=== PATIENT | male | born 1970 | race Caucasian/White ===

== ENCOUNTER 2022-12-07 16:16 | Inpatient (IN) ==
--- NOTE | 2022-12-07 16:30 | Emergency Department Note ---
History of Present Illness General Chief complaint: Arm Pain Stated complaint: PAIN IN ARM Time Seen by Provider: 12/07/22 16:28 History of Present Illness This is a 52-year-old male that presents to the emergency department via private vehicle with complaints of "pain in left arm". Patient notes this past he did a workout. He notes that he did push presses and push-ups. He did approximately 75 push-ups and 75 push presses. This is a bit more than normal. He notes since that time some swelling to the left arm and soreness with similar symptoms developing now on the right. No chest pain or shortness of breath. No fevers or chills. No nausea or vomiting. He notes a history of rhabdomyolysis. Home Medications Medication Instructions Recorded Confirmed Type acetaminophen 500 mg tablet 1,000 mg PO Q6H PRN Pain 12/07/22 12/07/22 History (Tylenol Extra Strength) atorvastatin 10 mg tablet 10 mg PO DAILY 12/07/22 12/07/22 History ibuprofen 200 mg tablet 400 mg PO Q6H PRN Pain 12/07/22 12/07/22 History omeprazole 20 mg tablet,delayed 20 mg PO DAILY 12/07/22 12/07/22 History release Allergies Allergy/AdvReac Type Severity Reaction Status Date / Time No Known Allergies Allergy Unverified 12/07/22 18:47 Past Med/Surg History Medical History HLD (hyperlipidemia) Rhabdomyolysis Surgical History S/P rotator cuff repair Status post total right knee replacement Family History (Updated 12/07/22 @ 19:30 by Sara Munguia PA-C) Father Prostate cancer Social History Smoking Status: Never smoker Hx Alcohol Use: Yes Alcohol type: beer, wine and hard liquor Alcohol Intake Frequency: 2-3 x/Week Hx Substance Use: No Preferred Language: Latvian Communication Ability: Effective Oil Agent Required: No Beliefs That Will Affect Care: None marital status: Current Living Situation: Spouse and Family Current Living Situation Comment: Patient lives at home with and son How many Children do You have: 2 Other Information That Helps Us Care for You: No Feels Safe at Home: Yes Safety Concerns: Feels Safe At This Time Assistive Devices: None Review of Systems A total of 10 systems reviewed and were otherwise negative Physical Exam Vital Signs Vital Signs - 24 hr 12/07/22 16:24 Temperature 36.5 C Temperature Source Skin Pulse Rate 84 Respiratory Rate 20 Respiratory Effort / Characteristics Non-Labored Spontaneous Respiratory Depth Normal Respiratory Pattern Regular Blood Pressure 171/101 H Blood Pressure Mean 124 Pulse Oximetry 98 Oxygen Delivery Method Room Air Sepsis Recent Fever Within 48 Hours No Sepsis New/Unexplained Change in Mental Status N/A Sepsis Action Taken by Nursing No Action Required VITAL SIGNS - Vital signs and nursing notes were reviewed. Stable and afebrile. GENERAL -52-year-old male appearing his stated age who is in no acute distress. Communicates well with provider and answers questions appropriately. SKIN - Without rashes. No meningeal or petechial rash. There is edema present to the left upper extremity. HEAD - NC/AT. EYES - Sclera anicteric. MOUTH/OROPHARYNX - Without perioral cyanosis. LUNGS - Chest wall symmetric without accessory muscle use, intercostals retractions, or central cyanosis. Normal vesicular breath sounds CTA B/L. No wheezes, rales, or rhonchi appreciated. CARDIAC - RRR with S1/S2. No murmur, rubs, or gallops appreciated. EXTREMITIES - No clubbing or peripheral cyanosis. Skin as above. Left radial pulse intact. Left upper extremity is with diffuse edema but without evidence of compartment syndrome. Arm is overall soft and nonrigid. Preserved active range of motion of the upper extremities noted. +5/5 strength noted in UE/LE bilaterally. NEUROLOGIC - Cranial nerves II through XII grossly intact. PSYCH - A&O, and cooperates fully with examiner. Pt is very pleasant and interacts well with examiner. Course Administered Medications Sodium Chloride (Nss 1000ml) 1,000 mls @ 150 mls/hr IV .Q6H40M JAIR Stop: 12/08/22 09:53 Last Admin: 12/07/22 20:49 Dose: 150 mls/hr Documented By: PASCUAL Oxycodone HCl (Oxycodone Hcl Ir 5 Mg Tab (Immediate Release)) 5 - 10 mg PO QID PRN PRN Reason: Pain Stop: 12/21/22 20:25 Last Admin: 12/07/22 20:55 Dose: 10 mg Documented By: PASCUAL Discontinued Medications Sodium Chloride (Nss 1000ml) 1,000 mls @ 999 mls/hr IV .Q1H1M JAIR Stop: 12/07/22 18:45 Last Infusion: 12/07/22 20:38 Dose: 0 mls/hr Documented By: Admin: 12/07/22 18:25 Dose: 999 mls/hr Documented By: EMI Medical Decision Making Laboratory Data 12/07/22 16:42 12/07/22 16:42 Lab Results 12/07/22 12/07/22 12/07/22 Range/Units 16:42 16:42 16:44 WBC 11.59 H (4.8-10.8) K/ul RBC 4.93 (4.70-6.10) M/uL Hgb 16.3 (14.0-18.0) g/dl Hct 44.7 (42.0-52.0) % MCV 90.7 (80.0-100.0) fL MCH 33.1 (25.0-34.0) pg MCHC 36.5 H (32.0-36.0) g/dL RDW Std Deviation 39.8 (36.4-46.3) fL RDW Coeff of Mj 11.9 (11.5-14.5) % Plt Count 278 (130-400) K/uL MPV 10.3 (9.4-12.4) fL Immature Gran % (Auto) 0.4 % Neut % (Auto) 69.8 % Lymph % (Auto) 20.7 % [place] % (Auto) 8.2 % Eos % (Auto) 0.5 % Baso % (Auto) 0.4 % Neut # (Auto) 8.08 H (1.40-6.50) K/uL Lymph # (Auto) 2.40 (1.2-3.4) K/uL [place] # (Auto) 0.95 H (0.11-0.59) K/uL Eos # (Auto) 0.06 (0-0.50) K/uL Baso # (Auto) 0.05 (0-0.2) K/uL Immature Gran # (Auto) 0.05 (0.01-0.20) K/uL Sodium 134 L (136-145) mmol/L Potassium 3.7 (3.5-5.1) mmol/L Chloride 101 (98-107) mmol/L Carbon Dioxide 25 (21-32) mmol/L Anion Gap 8 (3-11) BUN 17 (6-23) mg/dl Creatinine 1.04 (0.6-1.4) mg/dl Est Cr Clr Drug Dosing 76.3 ml/min Est GFR ( Amer) 95.9 ml/min Est GFR (Non-Af Amer) 82.7 ml/min BUN/Creatinine Ratio 16.3 (10-20) Glucose 138 H (70-99(Fasting)) mg/dl Calcium 8.8 (8.5-10.1) mg/dl Total Bilirubin 0.8 (0.2-1.0) mg/dl AST 756 H (13-39) U/L ALT 179 H (7-52) U/L Alkaline Phosphatase 66 (34-104) U/L Total Creatine Kinase 35002 H (30-223) U/L Total Protein 7.0 (6.0-8.3) gm/dl Albumin 4.4 (3.4-5.0) gm/dl Globulin 2.6 (2.5-4.0) gm/dl Albumin/Globulin Ratio 1.7 (0.9-2) Urine Color Yellow Urine Appearance Clear (Clear) Urine pH 5.5 (4.5-7.5) Ur Specific [place] 1.013 (1.000-1.030) Urine Protein 1+ H (Negative) Urine Glucose (UA) Negative (Negative) Urine Ketones Negative (Negative) Urine Blood 3+ H (Negative) Urine Nitrite Negative (Negative) Urine Bilirubin Negative (Negative) Urine Urobilinogen Negative (Negative) Ur Leukocyte Esterase Negative (Negative) Urine WBC (Auto) 1-5 (0-5) /hpf Urine RBC (Auto) 0-4 (0-4) /hpf U Hyaline Cast (Auto) 0 (0-5) /lpf U Epithel Cells (Auto) 0-5 (0-5) /lpf Urine Bacteria (Auto) Negative (Negative) SARS-CoV-2, RNA, NAAT (NEGATIVE) 12/07/22 Range/Units 18:23 WBC (4.8-10.8) K/ul RBC (4.70-6.10) M/uL Hgb (14.0-18.0) g/dl Hct (42.0-52.0) % MCV (80.0-100.0) fL MCH (25.0-34.0) pg MCHC (32.0-36.0) g/dL RDW Std Deviation (36.4-46.3) fL RDW Coeff of Mj (11.5-14.5) % Plt Count (130-400) K/uL MPV (9.4-12.4) fL Immature Gran % (Auto) % Neut % (Auto) % Lymph % (Auto) % [place] % (Auto) % Eos % (Auto) % Baso % (Auto) % Neut # (Auto) (1.40-6.50) K/uL Lymph # (Auto) (1.2-3.4) K/uL [place] # (Auto) (0.11-0.59) K/uL Eos # (Auto) (0-0.50) K/uL Baso # (Auto) (0-0.2) K/uL Immature Gran # (Auto) (0.01-0.20) K/uL Sodium (136-145) mmol/L Potassium (3.5-5.1) mmol/L Chloride (98-107) mmol/L Carbon Dioxide (21-32) mmol/L Anion Gap (3-11) BUN (6-23) mg/dl Creatinine (0.6-1.4) mg/dl Est Cr Clr Drug Dosing ml/min Est GFR ( Amer) ml/min Est GFR (Non-Af Amer) ml/min BUN/Creatinine Ratio (10-20) Glucose (70-99(Fasting)) mg/dl Calcium (8.5-10.1) mg/dl Total Bilirubin (0.2-1.0) mg/dl AST (13-39) U/L ALT (7-52) U/L Alkaline Phosphatase (34-104) U/L Total Creatine Kinase (30-223) U/L Total Protein (6.0-8.3) gm/dl Albumin (3.4-5.0) gm/dl Globulin (2.5-4.0) gm/dl Albumin/Globulin Ratio (0.9-2) Urine Color Urine Appearance (Clear) Urine pH (4.5-7.5) Ur Specific [place] (1.000-1.030) Urine Protein (Negative) Urine Glucose (UA) (Negative) Urine Ketones (Negative) Urine Blood (Negative) Urine Nitrite (Negative) Urine Bilirubin (Negative) Urine Urobilinogen (Negative) Ur Leukocyte Esterase (Negative) Urine WBC (Auto) (0-5) /hpf Urine RBC (Auto) (0-4) /hpf U Hyaline Cast (Auto) (0-5) /lpf U Epithel Cells (Auto) (0-5) /lpf Urine Bacteria (Auto) (Negative) SARS-CoV-2, RNA, NAAT NEGATIVE (NEGATIVE) Imaging Data Radiologist's Impression: Extremity Venous Study 12/07/22 16:38 LEFT UPPER EXTREMITY VENOUS DOPPLER ULTRASOUND CLINICAL HISTORY: Left arm pain COMPARISON STUDY: No previous studies for comparison. TECHNIQUE: Sonography of the deep venous system of the left upper extremity was performed. FINDINGS: The left internal jugular, subclavian, axillary, brachial, radial and ulnar veins were patent. No deep venous thrombus was identified within left upper extremity. IMPRESSION: No deep venous thrombus within the left upper extremity. ACT 112: Negative or not required by law. Electronically signed by: Lucien Ovalle M.D. 12/07/2022 5:44 PM [facility] Narrative Patient was seen and evaluated as above in room C12. Review was performed of nursing notes and vital signs. After obtaining a thorough history and physical examination the above work up was performed. Patient presents to us today for assessment of discomfort in the left arm following a workout. He clinically is well-appearing and nontoxic. Vital signs stable. He notes a history of rhabdomyolysis and this feels similar. Options of care were discussed with the patient. IV access was established. Labs were drawn. There is minimal leukocytosis 11.59. No anemia. Mild hyponatremia 134. Hyperglycemia 138[place] [address] consistent with rhabdomyolysis. Urine reveals 3+ blood and 1+ protein. COVID testing negative. DVT study of left upper extremity was negative. At this time I do believe that further evaluation and management in the inpatient setting is warranted. IV fluids ordered here in the ED. Case discussed with the hospitalist service. Please refer to further documentation regarding his stay. While in the department, I personally reevaluated the patient several times and each time the patient was found to be resting comfortably. The patient was educated upon management, educated upon todays findings/results, educated upon importance of follow up from today's visit, educated upon symptoms in which to return, had questions answered prior to discharge, verbalized understanding, and was discharged home in good condition. In the evaluation and treatment of this patient the following differential diagnoses were entertained: DVT, cellulitis, compartment syndrome, rhabdomyolysis, among others Impression & Plan Rhabdomyolysis, Elevated LFTs, Edema of left upper extremity Discharge Plan Visit Data Chief Complaint: Arm Pain Stated Complaint: PAIN IN ARM ED Provider: Sidney Best ED Midlevel Provider: Michael Monae Discharge Problem: Rhabdomyolysis, Elevated LFTs, Edema of left upper extremity Patient Disposition: Home - Self-Care Condition: Good Discharge Instructions Interventions: ED Discharge Assessment Last Done: 12/07/22 20:24
[2022-12-07 17:04] LABS: Basophils # (auto) 0.05 K/uL (0-0.2); Basophils % (auto) 0.4 %; Eosinophils # (auto) 0.06 K/uL (0-0.50); Eosinophils % (auto) 0.5 %; Hematocrit (blood only) 44.7 % (42.0-52.0); Hemoglobin 16.3 g/dl (14.0-18.0); Immature Granulocytes # (auto) 0.05 K/uL (0.01-0.20); Immature Granulocytes % (auto) 0.4 %; Lymphocytes % (auto) 20.7 %; Mean Corpuscular Hemoglobin 33.1 pg (25.0-34.0); Mean Corpuscular Hgb Conc 36.5 g/dL (32.0-36.0); Mean Corpuscular Volume 90.7 fL (80.0-100.0); Mean Platelet Volume 10.3 fL (9.4-12.4); Monocytes # (auto) 0.95 K/uL (0.11-0.59); Monocytes % (auto) 8.2 %; Neutrophils # (auto) 8.08 K/uL (1.40-6.50); Neutrophils % (auto) 69.8 %; Platelet Count 278 K/uL (130-400); RDW Coefficient of Variation 11.9 % (11.5-14.5); RDW Standard Deviation 39.8 fL (36.4-46.3); Red Blood Count 4.93 M/uL (4.70-6.10); White Blood Count 11.59 K/ul (4.8-10.8)
[2022-12-07 17:05] LABS: Appearance Urine Clear (Clear); Bacteria Urine Automated Negative (Negative); Bilirubin Urine Negative (Negative); Blood Urine 3+ (Negative); Cast Urine Automated 0 /lpf (0-5); Color Urine Yellow; Epithelial Cell Urine Auto 0-5 /lpf (0-5); Glucose Urine UA Negative (Negative); Ketones Urine Negative (Negative); Leukocyte Esterase Urine Negative (Negative); Nitrite Urine Negative (Negative); Protein Urine 1+ (Negative); RBC Urine Automated 0-4 /hpf (0-4); Specific Gravity Urine 1.013 (1.000-1.030); Urobilinogen Urine Negative (Negative); pH Urine 5.5 (4.5-7.5)
[2022-12-07 17:16] LABS: BUN Creatinine Ratio 16.3 (10-20); Calcium 8.8 mg/dl (8.5-10.1); Creatinine Clr Calc Pharmacy 76.3 ml/min; Est GFR (African American) 95.9 ml/min; Est GFR (Non-African American) 82.7 ml/min; Potassium 3.7 mmol/L (3.5-5.1)
[2022-12-07 17:26] LABS: Albumin Globulin Ratio 1.7 (0.9-2); Albumin Level 4.4 gm/dl (3.4-5.0); Bilirubin,Total 0.8 mg/dl (0.2-1.0); Globulin 2.6 gm/dl (2.5-4.0)
[2022-12-07] MEDS ORDERED: SODIUM CHLORIDE 0.9% 1000ML 1,000 ML IV SCH (17:45)
--- NOTE | 2022-12-07 17:45 | Ultrasound Report ---
LEFT UPPER EXTREMITY VENOUS DOPPLER ULTRASOUND CLINICAL HISTORY: Left arm pain COMPARISON STUDY: No previous studies for comparison. TECHNIQUE: Sonography of the deep venous system of the left upper extremity was performed. FINDINGS: The left internal jugular, subclavian, axillary, brachial, radial and ulnar veins were bravo nt. No deep venous thrombus was identified within left upper extremity. IMPRESSION: No deep venous thrombus within the left upper extremity. ACT 112: Negative or not required by law. Electronically signed by: Lucien Ovalle M.D. 12/07/2022 5:44 PM
--- NOTE | 2022-12-07 18:59 | History & Physical Report ---
Date of Service December 07, 2022 Assessment & Plan (1) Rhabdomyolysis: (2) Elevated LFTs: (3) HTN (hypertension): Plan: - Admit to med telemetry -Ultrasound of the left upper EXTR with negative for acute DVT or vein compression from edema. Pt told to notify nursing/provider zulay if any numbness/tingling/pain worsenend in his fingertips. -WBC 11.59 likely inflammatory, CK level of 49,620 at time of admission, AST 756, ALT 179-trend -Urine with 1+ protein, 3+ blood -Hold atorvastatin until rhabdo is resolved -Continue NSS@150 ml/hr x2 more liters, already received 1L in the ER -Allow regular diet, encourage drinking fluids -Current creatinine and BUN stable, trend with a.m. labs -BP noted to be 171/101, on repeat is 169/91 at bedside, discussed with the patient, he has never been on antihypertensives previously, if continues he may need to be started on blood pressure medication -patient admits to situational anxiety -Bedside counseling was provided on appropriate workouts, building strength and muscle, slowly increasing weight/reps/intensity versus max out exercises and workouts- he expressed understanding - Would like to establish with local PCP, set up prior to discharge DVT PPx: -- teds, scds, ambulatory CODE: Full code Dispo: From home, likely to remain in the hospital x 1-2 days, patient notes has a plane ride to [place] within 48 hours. 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 Pt exercised [place] on Friday at [employer], a local gym, where he participated in 75 of 90lb push presses overhead, 75 push ups, and box jumps, etc. Overall, this workout was fast paced with building repetitions onto each subsequent set to promote muscle breakdown and strength building. He was there with his who reguarly trains as well. He denies any pre workout drinks with creatine or other supplementations. He reports being a healthy individual other than being on atorvastatin and omeprazole for about 30 years. He notes having some situational anxiety around doctors because of his two children who are both individually having health issues recently. One age 14 went through diagnostic shoulder mass surgery in the past week, as well as his other son away at college, age 19, was seen for Crohn disease, now known to have a bad gastroenteritis bouth. Social Hx: Has two sons age 14 who is wrestling locally, training to become an olympic athlete. Another son in college. His teaches at [employer]. The patient is a [employer]OTE[employer] of [employer] in [place]. Reports alcohol use- this week had 12 drinks; about 3-4 at a time 3x per week. Denies tobacco use, chewing or recreational drug use. Surgical Hx: Right rotator cuff repair, R knee replacement surgery Family Hx: Paternal Uncle had CVA age 60s, [facility]. Dad with prostate cancer, 78 years old. Allergies Allergy/AdvReac Type Severity Reaction Status Date / Time No Known Allergies Allergy Unverified 12/07/22 18:47 Home Medications Medication Instructions Recorded Confirmed Type acetaminophen 500 mg tablet 1,000 mg PO Q6H PRN Pain 12/07/22 12/07/22 History (Tylenol Extra Strength) atorvastatin 10 mg tablet 10 mg PO DAILY 12/07/22 12/07/22 History ibuprofen 200 mg tablet 400 mg PO Q6H PRN Pain 12/07/22 12/07/22 History omeprazole 20 mg tablet,delayed 20 mg PO DAILY 12/07/22 12/07/22 History release Past Med/Surg History Medical History (Updated 12/07/22 @ 19:30 by Sara Munguia PA-C) HLD (hyperlipidemia) Rhabdomyolysis Surgical History (Updated 12/07/22 @ 19:30 by Sara Munguia PA-C) S/P rotator cuff repair Status post total right knee replacement Family History (Updated 12/07/22 @ 19:30 by Sara Munguia PA-C) Father Prostate cancer Social History (Updated 12/07/22 @ 19:31 by Sara Munguia PA-C) Smoking Status: Never smoker Hx Alcohol Use: Yes Alcohol type: beer Alcohol Intake Frequency: 2-3 x/Week Hx Substance Use: No marital status: Current Living Situation: Spouse How many Children do You have: 2 Feels Safe at Home: Yes Review of Systems Review of Systems: Constitutional: No fever, sweats or chills Eyes: No diplopia, no worsening or blurred vision ENT: normal hearing, no trouble swallowing Respiratory: No cough, sputum, dyspnea at rest or on exertion Cardiovascular: No chest pain, tightness or palpitations Abdomen: No pain, nausea, vomiting, diarrhea or constipation Musculoskeletal: Left arm pain and swelling, Slight Right arm pain. Otherwise No joint pain, calf pain, swelling Neurologic: No weakness, numbness/tingling, or balance problems Psychiatric: No anxiety or depression Skin: No rash or itch Physical Exam Physical Exam: General: awake, alert, no apparent distress Head: Normocephalic, atraumatic ENT: PERRL, EOMI, no pharyngeal exudate, mucous membranes moist Chest: Clear to auscultation, on room air, no adventitious breath sounds Cardiac: Regular rate and rhythm, no murmur, no JVD, normal peripheral pulses, good capillary refill Abdominal: NABS x 4 quadrants, soft, nondistended, nontender to palpation, no rebound or guarding Extremities: RUE with edema in the forearm bicept region and extends to the shoulder, nontender to touch currently, Pt with limited ROM with shoulder extension above his head due to pain. Other extremities Normal inspection, no peripheral edema or erythema, calfs nontender to palpation Psych: Normal mood and affect Neuro: AAO x 3, strength intact bilaterally and rated 5/5, no motor deficits, speech is clear, no peripheral sensory deficits Results & Data Results & Data ([facility]) Vital Signs (Past 12 Hours) Vital Signs Temp Pulse Resp BP Pulse Ox O2 Del Method 12/07/22 16:24 36.5 C 84 20 171/101 H 98 Room Air Laboratory Results 12/07/22 12/07/22 12/07/22 18:23 16:44 16:42 WBC RBC Hgb Hct MCV MCH MCHC RDW Std Deviation RDW Coeff of Mj Plt Count MPV Immature Gran % (Auto) Neut % (Auto) Lymph % (Auto) [place] % (Auto) Eos % (Auto) Baso % (Auto) Neut # (Auto) Lymph # (Auto) [place] # (Auto) Eos # (Auto) Baso # (Auto) Immature Gran # (Auto) Sodium 134 L Potassium 3.7 Chloride 101 Carbon Dioxide 25 Anion Gap 8 BUN 17 Creatinine 1.04 Est Cr Clr Drug Dosing 76.3 Est GFR ( Amer) 95.9 Est GFR (Non-Af Amer) 82.7 BUN/Creatinine Ratio 16.3 Glucose 138 H Calcium 8.8 Total Bilirubin 0.8 AST 756 H ALT 179 H Alkaline Phosphatase 66 Total Creatine Kinase 11353 H Total Protein 7.0 Albumin 4.4 Globulin 2.6 Albumin/Globulin Ratio 1.7 Urine Color Yellow Urine Appearance Clear Urine pH 5.5 Ur Specific [place] 1.013 Urine Protein 1+ H Urine Glucose (UA) Negative Urine Ketones Negative Urine Blood 3+ H Urine Nitrite Negative Urine Bilirubin Negative Urine Urobilinogen Negative Ur Leukocyte Esterase Negative Urine WBC (Auto) 1-5 Urine RBC (Auto) 0-4 U Hyaline Cast (Auto) 0 U Epithel Cells (Auto) 0-5 Urine Bacteria (Auto) Negative SARS-CoV-2, RNA, NAAT NEGATIVE 12/07/22 16:42 WBC 11.59 H RBC 4.93 Hgb 16.3 Hct 44.7 MCV 90.7 MCH 33.1 MCHC 36.5 H RDW Std Deviation 39.8 RDW Coeff of Mj 11.9 Plt Count 278 MPV 10.3 Immature Gran % (Auto) 0.4 Neut % (Auto) 69.8 Lymph % (Auto) 20.7 [place] % (Auto) 8.2 Eos % (Auto) 0.5 Baso % (Auto) 0.4 Neut # (Auto) 8.08 H Lymph # (Auto) 2.40 [place] # (Auto) 0.95 H Eos # (Auto) 0.06 Baso # (Auto) 0.05 Immature Gran # (Auto) 0.05 Sodium Potassium Chloride Carbon Dioxide Anion Gap BUN Creatinine Est Cr Clr Drug Dosing Est GFR ( Amer) Est GFR (Non-Af Amer) BUN/Creatinine Ratio Glucose Calcium Total Bilirubin AST ALT Alkaline Phosphatase Total Creatine Kinase Total Protein Albumin Globulin Albumin/Globulin Ratio Urine Color Urine Appearance Urine pH Ur Specific [place] Urine Protein Urine Glucose (UA) Urine Ketones Urine Blood Urine Nitrite Urine Bilirubin Urine Urobilinogen Ur Leukocyte Esterase Urine WBC (Auto) Urine RBC (Auto) U Hyaline Cast (Auto) U Epithel Cells (Auto) Urine Bacteria (Auto) SARS-CoV-2, RNA, NAAT Diagnostic Findings Extremity Venous Study 12/07/22 16:38 LEFT UPPER EXTREMITY VENOUS DOPPLER ULTRASOUND CLINICAL HISTORY: Left arm pain COMPARISON STUDY: No previous studies for comparison. TECHNIQUE: Sonography of the deep venous system of the left upper extremity was performed. FINDINGS: The left internal jugular, subclavian, axillary, brachial, radial and ulnar veins were patent. No deep venous thrombus was identified within left upper extremity. IMPRESSION: No deep venous thrombus within the left upper extremity. ACT 112: Negative or not required by law. Electronically signed by: Lucien Ovalle M.D. 12/07/2022 5:44 PM Code Status & VTE Plan Code Status Full code - discussed with the patient at bedside Supervising Physician Co-Signing Physician Notes Pt is a 52 y/o M with hx of HLD and GERD admitted for LUE swelling and Rhabdomyolysis. -pt denied any supplement or excess ETOH intake prior to the work out but does take Statin PE: NAD, well developed Lungs: CTA, no wheezing or crackles Cardiac: Normal S1/S2, no murmur Abd: ND, NT, soft MSK: Diffuse swelling of the Proximal and distal LUE, good radial pulse, no skin erythema Psych: AAOx3, normal affect A/P: Rhabdomyolysis with LUE swelling: -normal radial pulse on the L side ---- no neurological symptoms -likely 2/2 acute excess workout + statin + dehydration -VSS except slight increase in HR -pt is s/p 1L NS bolus ---- will do 150 cc/hr -repeat LFTs and CK dae - admit to tele and hold statin - for now monitor BP ---- if persistently high then likely need an Antihypertensive med Agree with A/P by Sara Munguia PA-C
[2022-12-07] MEDS ORDERED: MoRPHine SULFATE 4 MG/ML 1 ML CARP\\VIAL IV PRN (20:26)
[2022-12-07] MEDS ORDERED: PROMETHAZINE HCL 12.5 MG in SODIUM CHLORIDE 0.9% 50 ML IV PRN (20:26)
[2022-12-07] MEDS ORDERED: ACETAMINOPHEN 325 MG TAB PO PRN (20:34)
[2022-12-07] MEDS ORDERED: ONDANSETRON INJ 2 MG/ML 2 ML VIAL IV PRN (20:34)
[2022-12-07] MEDS: SODIUM CHLORIDE 0.9% 1000ML 1,000 ML IV SCH (20:49)
[2022-12-07] MEDS: oxyCODONE HCL IR 5 MG TAB (IMMEDIATE RELEASE) PO PRN (20:55)
[2022-12-08] MEDS: oxyCODONE HCL IR 5 MG TAB (IMMEDIATE RELEASE) PO PRN ×3 (01:01→20:11)
[2022-12-08] MEDS: SODIUM CHLORIDE 0.9% 1000ML 1,000 ML IV SCH (03:21)
[2022-12-08] MEDS: LORazepam 0.5 MG TAB PO PRN ×3 (04:12→20:11)
--- NOTE | 2022-12-08 04:27 | Communication Note ---
Date of Service: December 08, 2022 Patient requesting for Xanax prescription from [place] PCP. Information not found on patient's home medication reconciliation and PDMP query. Will request patient to provide pharmacy information in a.m. for release of records to verify Xanax prescription prior to ordering inpatient.
[2022-12-08 08:08] LABS: Hematocrit (blood only) 43.9 % (42.0-52.0); Hemoglobin 15.5 g/dl (14.0-18.0); Mean Corpuscular Hemoglobin 32.6 pg (25.0-34.0); Mean Corpuscular Hgb Conc 35.3 g/dL (32.0-36.0); Mean Corpuscular Volume 92.2 fL (80.0-100.0); Platelet Count 249 K/uL (130-400); RDW Coefficient of Variation 11.9 % (11.5-14.5); RDW Standard Deviation 40.5 fL (36.4-46.3); Red Blood Count 4.76 M/uL (4.70-6.10); White Blood Count 8.31 K/ul (4.8-10.8)
[2022-12-08] MEDS ORDERED: LACTATED RINGER'S 1,000 ML IV SCH (08:15)
[2022-12-08 08:33] LABS: BUN Creatinine Ratio 14.6 (10-20); Calcium 8.7 mg/dl (8.5-10.1); Creatinine Clr Calc Pharmacy 82.2 ml/min; Est GFR (African American) 114.7 ml/min; Potassium 3.8 mmol/L (3.5-5.1)
[2022-12-08 08:41] LABS: Bilirubin Direct 0.1 mg/dl (0-0.2); Bilirubin,Total 0.9 mg/dl (0.2-1.0); Chol HDL Ratio 3.1 (0-5); Magnesium 1.9 mg/dl (1.7-2.4); Phosphorus 3.1 mg/dl (2.5-4.9); Total Protein 6.5 gm/dl (6.0-8.3)
--- NOTE | 2022-12-08 11:21 | Hospitalist Progress Note ---
Date of Service December 08, 2022 Assessment & Plan (1) Rhabdomyolysis: Plan: Nontruamatic rhabdo 2/2 extreme exercise 3 days [employer]. Arrived with L arm discomfort that is slightly improved, but still there. More swelling in extremities today with ongoing IVF resuscitation. Development of ACS is a concern given soreness and swelling with redness that is increased overnight. Consult ortho for evaluation. Hold IVF for now as this is worsened. Cont supportive care efforts for pain control, etc. There is currently no evidence of acute renal failure and [place]ded from 63986 -->04903. Electrolytes are within normal limits. Cont to check frequently including Mag and Phos. (2) Elevated LFTs: Plan: 2/2 rhabdo, already improving. Expect to completely resolve with resolution of rhabdo. Cont to hold statin therapy. (3) HTN (hypertension): Plan: Urine with 1+ protein, 3+ blood Allow regular diet, encourage drinking fluids He is not on antihypertensives at home. Holding IVF for the time being, will ask ortho to assess his arm and then restart again at lower rate, most likely. DVT PPx: -- teds, scds, ambulatory CODE: Full code Dispo-requesting to leave the hospital today. States he needs to fly back to [place] on Friday. We discussed that he should stay for observation and IVF with electrolyte checks for now, and he is in agreement with that. Viridiana Cordero DO [facility] Hospitalist Admission and Anticipated Discharge Date Admission Date: December 07, 2022 Subjective 52 yo M presents with l arm ain after a heavy workout wed Found to have rhabdo Placed on IVF overnight with improvement in CK to 37K this am L arm is "sore" but patient feels this is improving There is more swelling on L>R arm, and swelling is worse in both Ther eis a PIV distally in the right arm and his vein definition in this arm has gone away because of trace swelling On the left arm, pura the elbow, there is some edema and generalized sweling with mild erythema to the skin Skin is cooler to touch on the left than right and skin is tighter L>R There is no sensation loss or numbness reported in fingertips or other and radial pulses are 2+ bilaterally Otherwise has no chest pain, SOB or other symptoms He is post op r knee operation which is in its normal state of healing. Review of Systems Review of Systems: All systems were reviewed and negative except as indicated on subjective above. Physical Exam Physical Exam: CONSTITUTIONAL: WNWD, vitals as above, generally well-appearing, NAD EYES: normal conjunctivae, no scleral icterus ENT: external ear and nose normal NECK: trachea midline RESPIRATORY: clear to auscultation bilaterally, no crackles, rales or wheezes, normal respiratory effort CARDIOVASCULAR: regular rate and rhythm, S1 and 2 heard without murmurs, gallops or rubs, no JVD CHEST: inspection of chest was normal GASTROINTESTINAL: soft, nontender, ND, no guarding MUSCULOSKELETAL: strength 5/5 throughout, head is normocephalic and atraumatic LUE: cool, mild gneeralized proximal erythema on flexor side of forearm, 2+ radial pulses, sensation intact, ++swelling L>R pura in elbow. Shannan ROM of Left arm in all planes of motion. RUE: PIV in place, very trace swelling, warmer to touch, no sensation loss, 2+ RP, Normal ROM. SKIN: warm and dry NEUROLOGIC: CN 2-12 grossly intact, no sensory deficit, normal cognition, normal speech, no tremor PSYCHIATRIC: alert cooperative and oriented to person, place and time. Euthymic mood, makes good eye contact, language grossly intact, recent and remote memory grossly intact. Results & Data Results & Data ([facility]) Vital Signs (Past 12 Hours) Vital Signs Temp Pulse Pulse Resp BP Pulse Ox O2 Del Method 12/08/22 11:10 36.6 C 72 14 175/99 H 98 Room Air 12/08/22 07:29 36.9 C 66 16 148/88 H 96 Room Air 12/08/22 07:00 64 12/08/22 03:28 36.6 C 67 16 163/90 H 97 Room Air Laboratory Results Short CBC 12/07/22 12/08/22 Range/Units 16:42 07:48 WBC 11.59 H 8.31 (4.8-10.8) K/ul Hgb 16.3 15.5 (14.0-18.0) g/dl Hct 44.7 43.9 (42.0-52.0) % Plt Count 278 249 (130-400) K/uL BMP 12/07/22 12/08/22 16:42 07:48 Sodium 134 L 140 Potassium 3.7 3.8 Chloride 101 106 Carbon Dioxide 25 28 BUN 17 13 Creatinine 1.04 0.89 Glucose 138 H 88 Calcium 8.8 8.7 Cardiac Enzymes 12/07/22 12/08/22 Range/Units 16:42 07:48 Total Creatine Kinase 65617 H 65116 H (30-223) U/L Liver Function 12/07/22 12/08/22 Range/Units 16:42 07:48 Total Bilirubin 0.8 0.9 (0.2-1.0) mg/dl Direct Bilirubin 0.1 (0-0.2) mg/dl AST 756 H 660 H (13-39) U/L ALT 179 H 178 H (7-52) U/L Alkaline Phosphatase 66 51 (34-104) U/L Albumin 4.4 4.0 (3.4-5.0) gm/dl Urine 12/07/22 Range/Units 16:44 Urine Color Yellow Urine Appearance Clear (Clear) Urine pH 5.5 (4.5-7.5) Ur Specific [place] 1.013 (1.000-1.030) Urine Protein 1+ H (Negative) Urine Glucose (UA) Negative (Negative) Medications Administered Current Inpatient Medications Acetaminophen (Acetaminophen 325 Mg Tab) 650 mg PO Q4H PRN PRN Reason: Moderate Pain (Scale 4, 5, 6) Stop: 01/06/23 20:33 Promethazine HCl 12.5 mg/ (Sodium Chloride) 50.5 mls @ 202 mls/hr IV Q6H PRN PRN Reason: Nausea And Vomiting Stop: 01/06/23 20:25 Lactated Ringer's (Lr) 1,000 mls @ 175 mls/hr IV .Q5H43M JAIR Stop: 01/07/23 08:14 Last Admin: 12/08/22 08:34 Dose: 175 mls/hr Lorazepam (Lorazepam 0.5 Mg Tab) 0.5 mg PO TID PRN PRN Reason: Anxiety Stop: 01/07/23 03:53 Morphine Sulfate (Morphine Sulfate 4 Mg/Ml 1 Ml Carp\\Vial) 4 mg IV Q4H PRN PRN Reason: Pain Stop: 12/21/22 20:25 Ondansetron HCl (Ondansetron Inj 2 Mg/Ml 2 Ml Vial) 4 mg IV Q4H PRN PRN Reason: Nausea And Vomiting Stop: 01/06/23 20:33 Oxycodone HCl (Oxycodone Hcl Ir 5 Mg Tab (Immediate Release)) 5 - 10 mg PO QID PRN PRN Reason: Pain Stop: 12/21/22 20:25 Last Admin: 12/08/22 05:01 Dose: 10 mg (1) Rhabdomyolysis Rhabdomyolysis type: non-traumatic Qualified Code(s): M62.82 - Rhabdomyolysis
--- NOTE | 2022-12-08 12:40 | Orthopedic Consultation ---
Date of Consultation December 08, 2022 Assessment & Plan (1) Edema of left upper extremity: IMPRESSION: LUE swelling due to Rhabdomyolysis, NO evidence of acute compartment syndrome Acute Goals: Decrease swelling, travel back to [place] Fri/Friday, return to normal activities. Plan: RICE Continue hydration Continue care and monitoring per primary service He should follow up with his physicians when he is back in [place] or if he is back in [place] in the next week or 2 would be happy to see him in the office. Thank you for allowing me to participate in Carlton's care. Present on Admission?: Yes (2) Rhabdomyolysis: See above Present on Admission?: Yes History of Present Illness Reason for Consultation: Evaluate for LUE for possible ACS Requesting Physician: Gilbert Kwong MD Attending Physician: Viridiana Cordero DO History of Present Illness 52 yo male admitted to hospital for Rhabdomyolysis and swelling LUE. He has a h/o Rhabdomyolysis 8 years ago. He notes the swelling and pain have decreased since his admission. Denies any numbness or tingling. He notes that he pushed himself a little too much as he is recovering from R TKA that was done 4 months ago in [place] and has not been working out. He has been urinating and it is clear. Allergies Allergy/AdvReac Type Severity Reaction Status Date / Time No Known Allergies Allergy Unverified 12/07/22 18:47 Home Medications Medication Instructions Recorded Confirmed Type acetaminophen 500 mg tablet 1,000 mg PO Q6H PRN Pain 12/07/22 12/07/22 History (Tylenol Extra Strength) atorvastatin 10 mg tablet 10 mg PO DAILY 12/07/22 12/07/22 History ibuprofen 200 mg tablet 400 mg PO Q6H PRN Pain 12/07/22 12/07/22 History omeprazole 20 mg tablet,delayed 20 mg PO DAILY 12/07/22 12/07/22 History release Patient History Medical History HLD (hyperlipidemia) Rhabdomyolysis Surgical History S/P rotator cuff repair Status post total right knee replacement Family History Father Prostate cancer Social History Smoking Status: Never smoker Hx Alcohol Use: Yes Alcohol type: beer, wine and hard liquor Alcohol Intake Frequency: 2-3 x/Week Hx Substance Use: No Preferred Language: Dutch Communication Ability: Effective Community Development Specialist Required: No Beliefs That Will Affect Care: None marital status: Current Living Situation: Spouse and Family Current Living Situation Comment: Patient lives at home with and son How many Children do You have: 2 Other Information That Helps Us Care for You: No Feels Safe at Home: Yes Safety Concerns: Feels Safe At This Time Assistive Devices: None Review of Systems Review of Systems: All systems reviewed & are unremarkable except as noted in HPI & below Physical Exam Physical Exam: LUE: Sensation to light touch is intact, 2+ radial pulse, and motor to his median, radial, ulnar, AIN and PIN are intact. + Swelling of the upper arm and proximal forearm. The upper arm and forearm are soft. Results & Data ([facility]) Vital Signs (Past 12 Hours) Vital Signs Temp Pulse Pulse Resp BP Pulse Ox O2 Del Method 12/08/22 11:10 36.6 C 72 14 175/99 H 98 Room Air 12/08/22 07:29 36.9 C 66 16 148/88 H 96 Room Air 12/08/22 07:00 64 12/08/22 03:28 36.6 C 67 16 163/90 H 97 Room Air Laboratory Results Laboratory Results WBC 8.31 K/ul (4.8-10.8) 12/08/22 07:48 RBC 4.76 M/uL (4.70-6.10) 12/08/22 07:48 Hgb 15.5 g/dl (14.0-18.0) 12/08/22 07:48 Hct 43.9 % (42.0-52.0) 12/08/22 07:48 MCV 92.2 fL (80.0-100.0) 12/08/22 07:48 MCH 32.6 pg (25.0-34.0) 12/08/22 07:48 MCHC 35.3 g/dL (32.0-36.0) 12/08/22 07:48 RDW Std Deviation 40.5 fL (36.4-46.3) 12/08/22 07:48 RDW Coeff of Mj 11.9 % (11.5-14.5) 12/08/22 07:48 Plt Count 249 K/uL (130-400) 12/08/22 07:48 MPV 10.0 fL (9.4-12.4) 12/08/22 07:48 Immature Gran % (Auto) 0.4 % 12/07/22 16:42 Neut % (Auto) 69.8 % 12/07/22 16:42 Lymph % (Auto) 20.7 % 12/07/22 16:42 [place] % (Auto) 8.2 % 12/07/22 16:42 Eos % (Auto) 0.5 % 12/07/22 16:42 Baso % (Auto) 0.4 % 12/07/22 16:42 Neut # (Auto) 8.08 K/uL (1.40-6.50) H 12/07/22 16:42 Lymph # (Auto) 2.40 K/uL (1.2-3.4) 12/07/22 16:42 [place] # (Auto) 0.95 K/uL (0.11-0.59) H 12/07/22 16:42 Eos # (Auto) 0.06 K/uL (0-0.50) 12/07/22 16:42 Baso # (Auto) 0.05 K/uL (0-0.2) 12/07/22 16:42 Immature Gran # (Auto) 0.05 K/uL (0.01-0.20) 12/07/22 16:42 Sodium 140 mmol/L (136-145) 12/08/22 07:48 Potassium 3.8 mmol/L (3.5-5.1) 12/08/22 07:48 Chloride 106 mmol/L (98-107) 12/08/22 07:48 Carbon Dioxide 28 mmol/L (21-32) 12/08/22 07:48 Anion Gap 6 (3-11) 12/08/22 07:48 BUN 13 mg/dl (6-23) 12/08/22 07:48 Creatinine 0.89 mg/dl (0.6-1.4) 12/08/22 07:48 Est Cr Clr Drug Dosing 82.2 ml/min 12/08/22 07:48 Est GFR ( Amer) 114.7 ml/min 12/08/22 07:48 Est GFR (Non-Af Amer) 99.0 ml/min 12/08/22 07:48 BUN/Creatinine Ratio 14.6 (10-20) 12/08/22 07:48 Glucose 88 mg/dl (70-99(Fasting)) 12/08/22 07:48 Calcium 8.7 mg/dl (8.5-10.1) 12/08/22 07:48 Phosphorus 3.1 mg/dl (2.5-4.9) 12/08/22 07:48 Magnesium 1.9 mg/dl (1.7-2.4) 12/08/22 07:48 Total Bilirubin 0.9 mg/dl (0.2-1.0) 12/08/22 07:48 Direct Bilirubin 0.1 mg/dl (0-0.2) 12/08/22 07:48 AST 660 U/L (13-39) H 12/08/22 07:48 ALT 178 U/L (7-52) H 12/08/22 07:48 Alkaline Phosphatase 51 U/L (34-104) 12/08/22 07:48 Total Creatine Kinase 74282 U/L (30-223) H 12/08/22 07:48 Total Protein 6.5 gm/dl (6.0-8.3) 12/08/22 07:48 Albumin 4.0 gm/dl (3.4-5.0) 12/08/22 07:48 Globulin 2.6 gm/dl (2.5-4.0) 12/07/22 16:42 Albumin/Globulin Ratio 1.7 (0.9-2) 12/07/22 16:42 Triglycerides 118 mg/dl (0-150) 12/08/22 07:48 Cholesterol 209 mg/dl (0-200) H 12/08/22 07:48 LDL Cholesterol, Calc 117 mg/dl 12/08/22 07:48 VLDL Cholesterol, Calc 24 mg/dl (0-30) 12/08/22 07:48 HDL Cholesterol 68 mg/dl 12/08/22 07:48 Cholesterol/HDL Ratio 3.1 (0-5) 12/08/22 07:48 Urine Color Yellow 12/07/22 16:44 Urine Appearance Clear (Clear) 12/07/22 16:44 Urine pH 5.5 (4.5-7.5) 12/07/22 16:44 Ur Specific [place] 1.013 (1.000-1.030) 12/07/22 16:44 Urine Protein 1+ (Negative) H 12/07/22 16:44 Urine Glucose (UA) Negative (Negative) 12/07/22 16:44 Urine Ketones Negative (Negative) 12/07/22 16:44 Urine Blood 3+ (Negative) H 12/07/22 16:44 Urine Nitrite Negative (Negative) 12/07/22 16:44 Urine Bilirubin Negative (Negative) 12/07/22 16:44 Urine Urobilinogen Negative (Negative) 12/07/22 16:44 Ur Leukocyte Esterase Negative (Negative) 12/07/22 16:44 Urine WBC (Auto) 1-5 /hpf (0-5) 12/07/22 16:44 Urine RBC (Auto) 0-4 /hpf (0-4) 12/07/22 16:44 U Hyaline Cast (Auto) 0 /lpf (0-5) 12/07/22 16:44 U Epithel Cells (Auto) 0-5 /lpf (0-5) 12/07/22 16:44 Urine Bacteria (Auto) Negative (Negative) 12/07/22 16:44 SARS-CoV-2, RNA, NAAT NEGATIVE (NEGATIVE) 12/07/22 18:23 Impressions Extremity Venous Study 12/07/22 16:38 LEFT UPPER EXTREMITY VENOUS DOPPLER ULTRASOUND CLINICAL HISTORY: Left arm pain COMPARISON STUDY: No previous studies for comparison. TECHNIQUE: Sonography of the deep venous system of the left upper extremity was performed. FINDINGS: The left internal jugular, subclavian, axillary, brachial, radial and ulnar veins were patent. No deep venous thrombus was identified within left upper extremity. IMPRESSION: No deep venous thrombus within the left upper extremity. ACT 112: Negative or not required by law. Electronically signed by: Lucien Ovalle M.D. 12/07/2022 5:44 PM (2) Rhabdomyolysis Rhabdomyolysis type: non-traumatic Qualified Code(s): M62.82 - Rhabdomyolysis
[2022-12-08] MEDS: LACTATED RINGER'S 1,000 ML IV SCH ×2 (13:47→17:08)
[2022-12-08 18:59] LABS: BUN Creatinine Ratio 13.6 (10-20); Calcium 8.9 mg/dl (8.5-10.1); Creatinine Clr Calc Pharmacy 66.5 ml/min; Est GFR (African American) 89.6 ml/min; Est GFR (Non-African American) 77.3 ml/min; Potassium 3.9 mmol/L (3.5-5.1)
[2022-12-08 19:05] LABS: Albumin Globulin Ratio 1.7 (0.9-2); Albumin Level 4.2 gm/dl (3.4-5.0); Bilirubin,Total 0.8 mg/dl (0.2-1.0); Globulin 2.5 gm/dl (2.5-4.0); Magnesium 1.8 mg/dl (1.7-2.4); Phosphorus 3.8 mg/dl (2.5-4.9); Total Protein 6.7 gm/dl (6.0-8.3)
[2022-12-09] MEDS: oxyCODONE HCL IR 5 MG TAB (IMMEDIATE RELEASE) PO PRN ×2 (00:23→04:21)
[2022-12-09] MEDS: LORazepam 0.5 MG TAB PO PRN (02:41)
[2022-12-09] MEDS: LACTATED RINGER'S 1,000 ML IV SCH ×3 (04:19→16:43)
[2022-12-09 07:37] LABS: BUN Creatinine Ratio 16.1 (10-20); Calcium 8.9 mg/dl (8.5-10.1); Creatinine Clr Calc Pharmacy 91.4 ml/min; Est GFR (African American) 115.8 ml/min; Est GFR (Non-African American) 99.9 ml/min; Potassium 3.8 mmol/L (3.5-5.1)
[2022-12-09 07:58] LABS: Albumin Globulin Ratio 1.5 (0.9-2); Albumin Level 3.7 gm/dl (3.4-5.0); Bilirubin,Total 0.4 mg/dl (0.2-1.0); Globulin 2.4 gm/dl (2.5-4.0); Magnesium 1.8 mg/dl (1.7-2.4); Phosphorus 3.1 mg/dl (2.5-4.9); Total Protein 6.1 gm/dl (6.0-8.3)
--- NOTE | 2022-12-09 09:51 | Orthopedic Progress Note ---
Date of Service December 09, 2022 Assessment & Plan (1) Edema of left upper extremity: Plan: LUE swelling due to Rhabdomyolysis, NO evidence of acute compartment syndrome, swelling improved. Applied tubi mussel farmer size F to the LUE Advised on keeping in place to assist with edema. May remove if becomes uncomfortable Continue with RICE Continue hydration Continue care and monitoring per primary service He should follow up with his physicians when he is back in [place] or if he is back in [place] in the next week or 2 he can follow up in our office Present on Admission?: Yes (2) Rhabdomyolysis: Plan: See above Present on Admission?: Yes Admission and Anticipated Discharge Date Admission Date: December 07, 2022 Supervising Physician Co-Signing Physician Notes I, Dr. Kwong, saw and examined the patient and discussed the management with my PA. I reviewed my PAs note and agree with the documented findings and the plan of care I developed. Subjective Patient is a 52-year-old male who is being followed for acute rhabdomyolysis and swelling of the left upper extremity. He was seen this a.m. in his room sitting over at the desk on his computer. He states the swelling is greatly improved since last night and only has a mild ache in the LUE. He states it is 1/10 in the left upper extremity. He states he is able to move the arms better and with out restriction. He was able to get cleaned up and stated he was able to wash his hair without any restriction or pain. He denies any change in color or paresthesia in the left upper extremity. He states he is able to urinate and has been clear. He offers no concerns. Review of Systems Review of Systems: please refer to HPI Physical Exam Physical Exam: General: Patient is alert and oriented x3 no acute distress pleasant and conversive Musculoskeletal/integumentary: Skin is normal in color and temperature. He has moderate edema over the left upper extremity when compared to the right. The left upper extremity is soft and nontender with palpation. Patient is able to actively flex and extend elbow wrist and fingers and digits without increased pain. He has passive range of motion that is painless of the left upper extremity. Radial pulses 2+ Results & Data ([facility]) Vital Signs (Past 12 Hours) Vital Signs Temp Pulse Pulse Resp BP Pulse Ox O2 Del Method 12/09/22 08:38 67 12/09/22 07:47 36.6 C 75 16 155/81 H 99 Room Air 12/09/22 03:41 36.4 C L 65 18 159/79 H 99 Room Air 12/08/22 23:22 36.9 C 75 18 137/73 96 Room Air 12/08/22 23:17 71 Laboratory Results 12/09/22 12/08/22 Range/Units 06:51 18:18 Sodium 139 138 (136-145) mmol/L Potassium 3.8 3.9 (3.5-5.1) mmol/L Chloride 106 103 (98-107) mmol/L Carbon Dioxide 29 30 (21-32) mmol/L Anion Gap 4 5 (3-11) BUN 14 15 (6-23) mg/dl Creatinine 0.87 1.10 (0.6-1.4) mg/dl Est Cr Clr Drug Dosing 91.4 66.5 ml/min Est GFR ( Amer) 115.8 89.6 ml/min Est GFR (Non-Af Amer) 99.9 77.3 ml/min BUN/Creatinine Ratio 16.1 13.6 (10-20) Glucose 102 H 77 (70-99(Fasting)) mg/dl Calcium 8.9 8.9 (8.5-10.1) mg/dl Phosphorus 3.1 3.8 (2.5-4.9) mg/dl Magnesium 1.8 1.8 (1.7-2.4) mg/dl Total Bilirubin 0.4 0.8 (0.2-1.0) mg/dl AST 553 H 721 H (13-39) U/L ALT 170 H 199 H (7-52) U/L Alkaline Phosphatase 48 53 (34-104) U/L Total Creatine Kinase 10043 H 04176 H (30-223) U/L Total Protein 6.1 6.7 (6.0-8.3) gm/dl Albumin 3.7 4.2 (3.4-5.0) gm/dl Globulin 2.4 L 2.5 (2.5-4.0) gm/dl Albumin/Globulin Ratio 1.5 1.7 (0.9-2) (2) Rhabdomyolysis Rhabdomyolysis type: non-traumatic Qualified Code(s): M62.82 - Rhabdomyolysis
--- NOTE | 2022-12-09 10:43 | Nephrology Consultation ---
Date of Consultation December 09, 2022 Assessment & Plan (1) Rhabdomyolysis: With CK levels presenting in 50K range and today down to 27K despite 48 hours of aggressive fluid resuscitation; no evidence to date of heme induced acute kidney injury but he does remain at risk. Daily basic metabolic panel and CK level For tomorrow we will also check phosphorus Liver work-up as below Continue aggressive IV fluids unless he is showing signs of fluid overload until CK is at least downtrending and generally more in the range of 5-10,000 rather than 50,000 Will sign off; pls call if further questions. (2) Elevated LFTs: Consider right upper quadrant ultrasound plus or minus coag studies and hepatitis panel (latter given tattoos) History of Present Illness Reason for Consultation: rhabdomyolysis Requesting Physician: Dr Cordero Attending Physician: Viridiana Cordero, DO History of Present Illness 52-year-old male whom I am asked to evaluate for rhabdomyolysis was admitted December 07 for the same after presenting with elevated LFTs and BL upper e xtremity pain. Past medical history of hyperlipidemia, past rhabdomyolysis approximately 2014, status post right total knee replacement July 2022 done in [place]. 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 On December 04 he did a fairly intense fast-paced workout focused on his biceps, especially active since he has not been active at the gym since his knee replacement. He presented with transaminases in the 100s, a CK of 50,000, clear yellow urine with 3+ microhematuria on dipstick with 0-4 RBCs per high-powered field, otherwise normal renal function. Denies nsaid use prior to admission. He was started on 150 mL hourly lactated Ringer's. Transaminases are at most marginally improved. Renal function has remained within normal limits. Orthope dics evaluated his left upper extremity and attributes pain and swelling to rhabdomyolysis without evidence of compartment syndrome. He had marked LUE > RUE edema which is improving some. no rash; no ruq pain. no other edema; pain in BLUE has improved and ROM returning. no n/v, no other edema. Allergies Allergy/AdvReac Type Severity Reaction Status Date / Time No Known Allergies Allergy Unverified 12/07/22 18:47 Home Medications Medication Instructions Recorded Confirmed Type acetaminophen 500 mg tablet 1,000 mg PO Q6H PRN Pain 12/07/22 12/07/22 History (Tylenol Extra Strength) atorvastatin 10 mg tablet 10 mg PO DAILY 12/07/22 12/07/22 History ibuprofen 200 mg tablet 400 mg PO Q6H PRN Pain 12/07/22 12/07/22 History omeprazole 20 mg tablet,delayed 20 mg PO DAILY 12/07/22 12/07/22 History release Patient History Medical History HLD (hyperlipidemia) Rhabdomyolysis Surgical History S/P rotator cuff repair Status post total right knee replacement Family History Father Prostate cancer Social History Smoking Status: Never smoker Hx Alcohol Use: Yes Alcohol type: beer, wine and hard liquor Alcohol Intake Frequency: 2-3 x/Week Hx Substance Use: No Preferred Language: Barbadian Communication Ability: Effective Telephone Sex Worker Required: No Beliefs That Will Affect Care: None marital status: Current Living Situation: Spouse and Family Current Living Situation Comment: Patient lives at home with and son How many Children do You have: 2 Other Information That Helps Us Care for You: No Feels Safe at Home: Yes Safety Concerns: Feels Safe At This Time Assistive Devices: None Review of Systems Review of Systems: All systems reviewed & are unremarkable except as noted in HPI & below Physical Exam Constitutional: well developed, well nourished and cooperative; no acute distress Eyes: EOM intact bilaterally ENMT: Ears: no external ear abnormality Nose: no external nose abnormality Mouth: + dry oral mucous membranes Neck: no nuchal rigidity Respiratory: normal respiratory effort Auscultation: + diminished lung sounds Cardiovascular: RRR, no murmur, no edema Gastrointestinal (Abdomen): Inspection/Auscultation: normal bowel sounds Percussion/Palpation: abdomen soft; abdomen nontender Musculoskeletal: Extremities: strength 5/5 throughout Skin: no rashes, warm and dry (lots of tattoos) Neurologic: butler, fluent speech, no tremor Psychiatric: Orientation: alert and oriented x 3 Speech: normal rat e/rhythm/volume of speech Results & Data ([facility]) Vital Signs (Past 12 Hours) Vital Signs Temp Pulse Pulse Resp BP Pulse Ox O2 Del Method 12/09/22 10:35 36.3 C L 67 18 161/96 H 98 Room Air 12/09/22 08:38 67 12/09/22 07:47 36.6 C 75 16 155/81 H 99 Room Air 12/09/22 03:41 36.4 C L 65 18 159/79 H 99 Room Air 12/08/22 23:22 36.9 C 75 18 137/73 96 Room Air 12/08/22 23:17 71 Laboratory Results 12/08/22 07:48 12/09/22 06:51 Diagnostic Findings Left upper extremity Doppler negative for DVT (1) Rhabdomyolysis Rhabdomyolysis type: non-traumatic Qualified Code(s): M62.82 - Rhabdomyolysis
--- NOTE | 2022-12-09 15:45 | Hospitalist Progress Note ---
Date of Service December 09, 2022 Assessment & Plan (1) Rhabdomyolysis: Plan: Nontraumatic rhabdo 2/2 extreme exercise 3 days IN [employer]. Arrived with L arm discomfort which has resolved. No concern for compartment syndrome at this time. His IVF were held overnight out of concern for development of compartment syndrome, and were restarted this morning. Electrolytes are within normal limits. CK trending down. (2) Elevated LFTs: Plan: 2/2 rhabdo, already improving. Expect to completely resolve with resolution of rhabdo. Cont to hold statin therapy. Notably patient admitted to excessive alcohol use IN [employer] for [employer]. This in combination with rhabdo and statin use is likely the cause of the elevated LFTs. There is no elevation of bilirubin or jaundice and there is no abdominal pain or issues on exam. To be complete, we are ordering hepatitis panel and us liver and coags. (3) HTN (hypertension): Plan: Urine with 1+ protein, 3+ blood Allow regular diet, encourage drinking fluids He is not on antihypertensives at home. Will place him on a low dose losartan for now. DVT PPx: -- teds, scds, ambulatory CODE: Full code Dispo-requesting to leave the hospital today. States he needs to fly back to [place] on Friday. Repeating labwork this evening and will strongly consider discharge at that time barring any severe issues that need further investigation. I spent a total of60 minutes coordinating, documenting, and providing care for this patient excluding time spent in the performance of separately billed services DO [facility] Admission and Anticipated Discharge Date Admission Date: December 07, 2022 Subjective 52 yo M presents with l arm ain after a heavy workout wed Found to have rhabdo Reports his skin tightness and swelling has decreased overnight and he is feeling back to baseline. He is orally hydrating with powerade and water denies any numbness in his arm today. Interested in leaving the hospital tonight. Review of Systems Review of Systems: All systems were reviewed and negative except as indicated on subjective above. Physical Exam Physical Exam: CONSTITUTIONAL: WNWD, vitals as above, generally well-appearing, NAD EYES: normal conjunctivae, no scleral icterus ENT: external ear and nose normal NECK: trachea midline RESPIRATORY: clear to auscultation bilaterally, no crackles, rales or wheezes, normal respiratory effort CARDIOVASCULAR: regular rate and rhythm, S1 and 2 heard without murmurs, gallops or rubs, no JVD CHEST: inspection of chest was normal GASTROINTESTINAL: soft, nontender, ND, no guarding MUSCULOSKELETAL: strength 5/5 throughout, head is normocephalic and atraumatic. Still some slight swelling in LUE but this has greatly reduced and no swelling on the right. Full ROM present in each arm/shoulder. SKIN: warm and dry NEUROLOGIC: CN 2-12 grossly intact, no sensory deficit, normal cognition, normal speech, no tremor PSYCHIATRIC: alert cooperative and oriented to person, place and time. Euthymic mood, makes good eye contact, language grossly intact, recent and remote memory grossly intact. Results & Data Results & Data ([facility]) Vital Signs (Past 12 Hours) Vital Signs Temp Pulse Pulse Resp BP Pulse Ox O2 Del Method 12/09/22 11:01 36.8 C 70 18 164/98 H 100 Room Air 12/09/22 10:35 36.3 C L 67 18 161/96 H 98 Room Air 12/09/22 08:38 67 12/09/22 07:47 36.6 C 75 16 155/81 H 99 Room Air 12/09/22 03:41 36.4 C L 65 18 159/79 H 99 Room Air Laboratory Results BMP 12/08/22 12/09/22 18:18 06:51 Sodium 138 139 Potassium 3.9 3.8 Chloride 103 106 Carbon Dioxide 30 29 BUN 15 14 Creatinine 1.10 0.87 Glucose 77 102 H Calcium 8.9 8.9 Cardiac Enzymes 12/08/22 12/09/22 Range/Units 18:18 06:51 Total Creatine Kinase 53375 H 51911 H (30-223) U/L Liver Function 12/08/22 12/09/22 Range/Units 18:18 06:51 Total Bilirubin 0.8 0.4 (0.2-1.0) mg/dl AST 721 H 553 H (13-39) U/L ALT 199 H 170 H (7-52) U/L Alkaline Phosphatase 53 48 (34-104) U/L Albumin 4.2 3.7 (3.4-5.0) gm/dl Medications Administered Current Inpatient Medications Acetaminophen (Acetaminophen 325 Mg Tab) 650 mg PO Q4H PRN PRN Reason: Moderate Pain (Scale 4, 5, 6) Stop: 01/06/23 20:33 Promethazine HCl 12.5 mg/ (Sodium Chloride) 50.5 mls @ 202 mls/hr IV Q6H PRN PRN Reason: Nausea And Vomiting Stop: 01/06/23 20:25 Lactated Ringer's (Lr) 1,000 mls @ 150 mls/hr IV .[id number] JAIR Stop: 01/07/23 13:29 Last Admin: 12/09/22 09:05 Dose: 150 mls/hr Lorazepam (Lorazepam 0.5 Mg Tab) 0.5 mg PO TID PRN PRN Reason: Anxiety Stop: 01/07/23 03:53 Last Admin: 12/09/22 02:41 Dose: 0.5 mg Morphine Sulfate (Morphine Sulfate 4 Mg/Ml 1 Ml Carp\Vial) 4 mg IV Q4H PRN PRN Reason: Pain Stop: 12/21/22 20:25 Ondansetron HCl (Ondansetron Inj 2 Mg/Ml 2 Ml Vial) 4 mg IV Q4H PRN PRN Reason: Nausea And Vomiting Stop: 01/06/23 20:33 Oxycodone HCl (Oxycodone Hcl Ir 5 Mg Tab (Immediate Release)) 5 - 10 mg PO QID PRN PRN Reason: Pain Stop: 12/21/22 20:25 Last Admin: 12/09/22 04:21 Dose: 10 mg (1) Rhabdomyolysis Rhabdomyolysis type: non-traumatic Qualified Code(s): M62.82 - Rhabdomyolysis
[2022-12-09 17:19] LABS: BUN Creatinine Ratio 12.1 (10-20); Calcium 9.4 mg/dl (8.5-10.1); Creatinine Clr Calc Pharmacy 87.4 ml/min; Est GFR (African American) 112.7 ml/min; Est GFR (Non-African American) 97.2 ml/min; Potassium 3.7 mmol/L (3.5-5.1)
[2022-12-09 17:31] LABS: INR 1.1 (0.9-1.1); Prothrombin Time 11.2 Seconds (9.0-12.0)
[2022-12-09 17:39] LABS: Albumin Globulin Ratio 1.8 (0.9-2); Albumin Level 4.6 gm/dl (3.4-5.0); Bilirubin,Total 0.5 mg/dl (0.2-1.0); Globulin 2.6 gm/dl (2.5-4.0); Total Protein 7.2 gm/dl (6.0-8.3)
--- NOTE | 2022-12-09 18:07 | Ultrasound Report ---
ABDOMINAL ULTRASOUND, RIGHT UPPER QUADRANT HISTORY: elevated LFTs. COMPARISON: None. FINDINGS: Pancreas: The pancreatic tail is obscured by overlying bowel gas. The remaining portions of the pancr eas are within normal limits. Liver: The liver is echogenic consistent with fatty change. Gallbladder: No gallbladder wall thickening. No gallstones. CBD: 4 mm. Right kidney: No hydronephrosis. IMPRESSION: 1. Mild hepatic steatosis. 2. Normal gallbladder. No gallstones. ACT 112: Negative or not required by law. Electronically signed by: Carlton Mack M.D. 12/09/2022 6:05 PM
--- NOTE | 2022-12-09 18:32 | Discharge Summary ---
Discharge Summary Date of Service December 09, 2022 Notes For Next Care Provider Patient still in rhabdo with elevated LFTs when he left the hopsital although was clinically improved There was no renal failure and arm discomfort was resolved Please consider repeating LFTs, CK as outpatient Patient was advised to avoid tylenol, alcohol, statins and strenuous exercise I question his ability to stay compliant with that Admitted to excessive alcohol use and was hypertensive in hospital Repeat BP in office and there was concern that there is questionable withdrawal of alcohol in the hospital? This is not known to be an issue for him in the past. 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 Pt exercised last on Friday at [employer], a local gym, where he participated in 75 of 90lb push presses overhead, 75 push ups, and box jumps, etc. Overall, this workout was fast paced with building repetitions onto each subsequent set to promote muscle breakdown and strength building. He was there with his who reguarly trains as well. He denies any pre workout drinks with creatine or other supplementations. He reports being a healthy individual other than being on atorvastatin and omeprazole for about 30 years. He notes having some situational anxiety around doctors because of his two children who are both individually having health issues recently. One age 14 went through diagnostic shoulder mass surgery in the past week, as well as his other son away at college, age 19, was seen for Crohn disease, now known to have a bad gastroenteritis bouth. Social Hx: Has two sons age 14 who is wrestling locally, training to become an olympic athlete. Another son in college. His teaches at [employer]. 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 Reports alcohol use- this week had 12 drinks; about 3-4 at a time 3x per week. Denies tobacco use, chewing or recreational drug use. Surgical Hx: Right rotator cuff repair, R knee replacement surgery Family Hx: Paternal Uncle had CVA age 60s, [facility]. Dad with prostate cancer, 78 years old. Admission Exam Per Admitting Provider General: awake, alert, no apparent distress Head: Normocephalic, atraumatic ENT: PERRL, EOMI, no pharyngeal exudate, mucous membranes moist Chest: Clear to auscultation, on room air, no adventitious breath sounds Cardiac: Regular rate and rhythm, no murmur, no JVD, normal peripheral pulses, good capillary refill Abdominal: NABS x 4 quadrants, soft, nondistended, nontender to palpation, no rebound or guarding Extremities: RUE with edema in the forearm bicept region and extends to the shoulder, nontender to touch currently, Pt with limited ROM with shoulder extension above his head due to pain. 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 Initial lab work reflected a CK of 49,620 on 12/07 which was 34,502 on 12/09. There was no evidence of kidney injury. Initial AST on admission was 756 and was 732 at time of discharge. ALT on admission was 179 and was 225 at time of discharge. He was admitted to the hospitalist team and resuscitated with IV fluids. On hospital day 2 he developed worsening swelling with questionable loss of sensation of his left arm and compartment syndrome was entertained. Ortho evaluated him on at least 3 occasions and did not see evidence of acute compartment syndrome. Fluids were held temporarily while this was being assessed and restarted. There was no evidence of acute renal failure from heme injury but nephrology was consulted. There was evidence of elevated LFTs but no elevated bilirubin to suggest obstruction, liver ultrasound revealed fatty liver with no evidence of stones and a normal gallbladder, and coags were normal. LFT elevation was thought secondary to rhabdomyolysis, statin use, and recent heavy alcohol use for [employer]. On hospital day 3 the patient reportedly felt better and was back to normal with range of motion of his left and right arms and a reduction in swelling overall. There was no loss of sensation anymore and he was requesting to leave the hospital. He was advised that his CK was still very elevated and so where his liver function studies. Continued monitoring in the hospital with IV fluid resuscitation was recommended. He reported having a very significant work engagement and needed to get down to [place] for this the following day. We discussed a follow-up plan for him to see his internal medicine physician in [place] upon arrival in a couple of days. Her name is Dr. Marleni Malcolm in [place], [place]. We discussed that she will receive a discharge summary and a phone call from the undersigned tomorrow and lab work at a minimum was recommended. He also had a local primary care physician appointment established prior to discharge for here locally in the [facility]. At time of discharge she was mentating and ambulating at baseline and tolerating p.o. He was discharged in stable condition with close primary care follow-up recommended. Additionally of note, I discussed that we would not be giving any pain medications upon discharge and reported to him that the hospital record reflected he had taken at least 6 doses of oxycodone 10 mg over the past 3 days. This was supported with nursing notes and pharmacy records. However, the patient adamantly reports that he did not use oxycodone while in the hospital. An investigation was launched from the hospital standpoint. However, the recorded oxycodone is supported with evidence that it was being requested and given at various different times. He also uses benzos periodically and reports heavy alcohol use. He had an elevated blood pressure in the low 150s during his hospital stay and was very eager to leave the hospital. It is possible there may have been a relative alcohol withdrawal during this stay and should be considered as a possible issue in future visits with physicians. Updated Medication List Medication Instructions Recorded Confirmed Type acetaminophen 500 mg tablet 1,000 mg PO Q6H PRN Pain 12/07/22 12/07/22 History (Tylenol Extra Strength) ibuprofen 200 mg tablet 400 mg PO Q6H PRN Pain 12/07/22 12/07/22 History omeprazole 20 mg tablet,delayed 20 mg PO DAILY 12/07/22 12/07/22 History release Hospital Stay Data Consultations 12/07/22 18:47 ED Decision to Admit Stat 12/08/22 11:18 Consult Orthopedic Surgery Routine 02/26/23 12:30 Consult Nephrology Routine Diagnostic Imagining Performed 12/07/22 16:38 US venous doppler UE LT Stat 12/09/22 13:32 US liver Routine Pending Results Patient Have Any Pending Studies at Discharge: No Discharge Instructions Given to Patient (Per Discharging Provider) elías Roa were admitted to the hospital with rhabdomyolysis. This was likely from strenuous exercise which should be avoided for the next several weeks. During this time, please also avoid alcohol, tylenol (acetaminophen) products, and Lipitor or other statins. As we discussed, your labwork reflects that you still have severe muscle breakdown which is still being cleared from your system. This is evidenced by a creatine kinase (CK) level of 34,502 at time of discharge. You also have elevated liver function tests which are reflecting severe inflammation. At time of discharge your AST is 732 and ALT is 225. Your INR level was normal. These labs should be repeated in two days. Please avoid any preworkout supplements or other supplements of any kind at this time. Your blood pressure is above the goal of 140/90. Please stick to a low salt diet (< 2000mg daily) and have your blood pressure rechecked in the next 1-2 weeks to ensure you are at or less than this goal. Please follow-up with your primary care physician as soon as feasible to have these labs repeated to ensure they are trending down with your efforts at continuing to rehydrate. It was a pleasure taking care of you! Please call if you have any questions or problems. You can reach a [facility] hospitalist on duty at [facility] 24 hours a day by calling [phone]. Take care of yourself. Viridiana Cordero, [facility] Hospitalist Total Time Total Time Spent Total Time Spent (In Minutes): 60
[2022-12-10] MEDS ORDERED: LOSARTAN POTASSIUM 50 MG TAB PO SCH (09:00)
[2022-12-11 10:42] LABS: HBSAG NON-REACTIVE (NON-REACTIVE); Hepatitis A Antibody IgM NON-REACTIVE (NON-REACTIVE); Hepatitis B Core Antibody IgM NON-REACTIVE (NON-REACTIVE)
== END 2022-12-09 19:03 | disposition home or self-care (01) | DRG 558 ==
LOC: ED 16:16 → SUATTDRO 19:19 → 2S 19:19